=== PATIENT | female | born 1985 | race Caucasian/White ===

== ENCOUNTER 2017-07-03 11:48 | Inpatient (IN) ==
[2017-07-03] MEDS ORDERED: ACETAMINOPHEN 500 MG TABLET PO PRN (16:02)
[2017-07-03] MEDS ORDERED: LIDOCAINE 1% (10mg/ml) 2mL INJ PF SDV ID PRN (16:02)
[2017-07-03] MEDS ORDERED: METHYLERGONOVINE 0.2 MG/ML INJECTION IM PRN (16:02)
[2017-07-03] MEDS ORDERED: CALCIUM CARBONATE Chewable 500mg TABLET PO PRN (16:02)
[2017-07-03] MEDS ORDERED: MAG-AL + SIM ORAL LIQUID 30ml PO PRN (16:02)
[2017-07-03] MEDS ORDERED: CARBOPROST 250 MCG/ML INJECTION IM PRN (16:02)
[2017-07-03] MEDS: LR 1,000 ML IV PRN (16:45)
[2017-07-03 17:31] VITALS: BMI 37.5
[2017-07-03] MEDS ORDERED: ZOLPIDEM 5 MG TABLET PO PRN (22:00)
[2017-07-04] MEDS ORDERED: OXYTOCIN DRIP 30 UNIT/500 ML ML IV PRN (05:00)
[2017-07-04] MEDS: D5LR 1,000 ML IV PRN ×2 (05:18→14:49)
--- NOTE | 2017-07-04 08:03 | Anesthesia Preoperative Report ---
Anesthesia Epidural/Spinal Rec - Date and Time Date: 07/04/17 Procedure: Labor Epidural Plan: Epidural - Vital Signs NPO since: 399 /Para: P:1 Heart Rate: 159 - Medictaions & Allergies Inpatient Medications: Current Medications Acetaminophen (Tylenol) 500 - 1,000 mg PO Q4H PRN PRN Reason: Pain Hydrocodone Bitart/Acetaminophen ([place] 5/325) 1 - 2 tab PO Q4H PRN PRN Reason: Pain Al Hydroxide/Mg Hydroxide (Maalox Plus) 30 ml PO Q3H PRN PRN Reason: Indigestion Calcium Carbonate (Tums) 500 - 1,000 mg PO Q2H PRN PRN Reason: Indigestion Carboprost Tromethamine (Hemabate) 250 mcg IM O PRN PRN Reason: .Downtime Lactated Ringer's (Lactated Ringers) 1,000 mls @ 0 mls/hr IV .Q0M PRN PRN Reason: As Directed Last Admin: 07/03/17 16:45 Dose: 999 mls/hr Dextrose/Lactated Ringer's (Dextrose 5%-Lactated Ringers) 1,000 mls @ 125 mls/ hr IV .Q8H PRN PRN Reason: Labor Last Admin: 07/04/17 05:18 Dose: 125 mls/hr Oxytocin (Pitocin Drip) 30 unit in 500 mls @ 2 mls/hr IV .Q24H PRN; Protocol PRN Reason: Induction/Augmentation Last Admin: 07/04/17 05:18 Dose: 2 mls/hr Lidocaine HCl (Xylocaine-Mpf 1% Vial) 0.2 mg ID O PRN PRN Reason: IV Start Methylergonovine Maleate (Methergine) 0.2 mg IM O PRN Misoprostol (Cytotec) 800 mcg DE ONCE PRN Zolpidem Tartrate (Ambien) 5 mg PO O PRN PRN Reason: Insomnia Allergies/Adverse Reactions: Allergies Allergy/AdvReac Type Severity Reaction Status Date / Time amoxicillin Allergy Mild Vomiting Verified 07/03/17 16:40 - Home Medications Home Medications: Home Medications Medication Instructions Recorded Confirmed Type Vit No.130/Iron/Folic 1 tab PO DAILY #0 tab 12/24/14 07/03/17 History [ Tablet] CALCIUM CARBONATE Chewable [Tums] 500 mg PO Q4H PRN 05/19/17 07/03/17 History Ferrous Sulfate [Iron] 325 mg PO DAILY 05/19/17 07/03/17 History - Medical History Gastrointestional: Reports: Gastroesophageal Reflux Disease, Morbid Obesity Other History: Reports: Now DENIES: Anesthesia Reactions - Surgical History Reproductive Surgery/Treatment: DENIES: Section Anesthesia Reactions: None Hx Family Anesthesia Reaction: No History of Motion Sickness: No - Social History Smoking Status: Former smoker Second Hand Exposure: Yes Substance Use Type: does not use Alcohol Intake Frequency: does not drink Hx Chewing Tobacco Use: No - Pertinent Findings Lab Data: CBC and BMP 07/03/17 16:17 - Physical Exam Respiratory Exam: lungs clear, bilateral breath sounds equal Cardiovascular Exam: regular rate and rhythm - Airway Assessment Mallampati Score: II TMD: 3 Fingerbreadths Neck Extension: fair Overall Assessment: no airway concerns - ASA ASA Score: 2 - Discussion Discussion: Discussed risks/options/alternatives of anesthesia and questions answered. Patient consents. Nursing pain assessment noted. Anesthesia Discussion: family member Attestation Statement: Prior to the delivery of any anesthetic medication, I examined the patient, developed the plan, obtained the patient's consent and discussed the risk and benefits of the procedure with the patient/guardian.
[2017-07-04] MEDS: LR 1,000 ML IV PRN (10:54)
[2017-07-04] MEDS ORDERED: DiphenhydrAMINE 50 MG/ML INJECTION IVP PRN (11:07)
[2017-07-04] MEDS ORDERED: ONDANSETRON 4 MG/2 ML INJECTION IVP PRN ×2 (11:07→18:45)
[2017-07-04] MEDS ORDERED: ROPIVACAINE 1% 10MG/ML INJ 200 MG, SUFentanil 50 MCG in NS 100 ML EPI PRN (11:07)
[2017-07-04] MEDS ORDERED: NALOXONE 0.4 MG/ML INJECTION IVP PRN (11:07)
[2017-07-04] MEDS ORDERED: CEFAZOLIN 1 G INJECTION IVP ONE (18:31)
[2017-07-04] MEDS ORDERED: FAMOTIDINE PB 20 MG/50 ML BAG IV ONE (18:31)
[2017-07-04] MEDS ORDERED: CEFAZOLIN PREMIX (MC ONLY) 2 GM/50 ML BAG IV ONE (18:31)
[2017-07-04] MEDS ORDERED: CITRIC ACID/SODIUM CITRATE 30ml PO ONE (18:31)
[2017-07-04] MEDS ORDERED: BUPIVACAINE 0.5% (5mg/ml) PF 30ml INJ SDV ONE (18:40)
[2017-07-04] MEDS ORDERED: LIDOCAINE 2%/EPI 1:200,000 20ml SDV PF ONE (18:40)
[2017-07-04] MEDS ORDERED: NALBUPHINE 10 MG/ML INJECTION IVP PRN (18:45)
[2017-07-04] MEDS ORDERED: NALOXONE 2 MG/2 ML INJECTION PFS IVP PRN (18:45)
[2017-07-04] MEDS ORDERED: MORPHINE SULFATE PF 5mg/10ml INJ (Duramorph) ONE (18:59)
[2017-07-04] MEDS ORDERED: ONDANSETRON 4 MG/2 ML INJECTION ONE (19:00)
[2017-07-04] MEDS: OXYTOCIN BOLUS BAG 30 UNIT/500 ML ML IV SCH ×2 (19:17→19:45)
[2017-07-04] MEDS ORDERED: HYDROCORTISONE 2.5% CREAM 30gm RECTALLY PRN (19:59)
[2017-07-04] MEDS ORDERED: DiphenhydrAMINE 25 MG CAPSULE PO PRN (19:59)
[2017-07-04] MEDS ORDERED: SIMETHICONE 80 MG CHEWABLE TABLET PO PRN (19:59)
[2017-07-04] MEDS ORDERED: OXYTOCIN DRIP 30 UNIT/500 ML ML IV SCH (20:00)
[2017-07-04] MEDS: CLINDAMYCIN PB 900 MG/50 ML BAG IV SCH (21:34)
[2017-07-04] MEDS: GENTAMICIN PB 120 MG/100 ML BAG IV SCH (23:50)
[2017-07-05] MEDS: SIMETHICONE 80 MG CHEWABLE TABLET PO SCH ×5 (00:44→22:35)
[2017-07-05] MEDS: CEFAZOLIN 1 G in NS 100 ML IV SCH ×5 (00:45→19:44)
[2017-07-05] MEDS: IBUPROFEN 800 MG TABLET PO PRN ×2 (02:02→16:39)
[2017-07-05] MEDS: D5LR 1,000 ML IV SCH ×3 (02:31→17:33)
[2017-07-05] MEDS ORDERED: CALCIUM CARBONATE Chewable 500mg TABLET PO PRN (04:10)
[2017-07-05] MEDS: CLINDAMYCIN PB 900 MG/50 ML BAG IV SCH ×3 (06:30→22:35)
--- NOTE | 2017-07-05 08:31 | OB/GYN Progress Note ---
OB-PP Progress Note - General PPD1 Maternal Group B Strep: Negative Maternal blood type: A+ Maternal Rubella Status: Immune - Subjective Date: 07/05/17 Lochia: Minimal Pain: controlled Voiding: gamino still in place Nausea or Vomiting Present: No Subjective Comments: She was started on Abx last PM after surgery for an elevated temperature. - Objective Vital Signs: Last Vital Signs Temp 98.3 F 07/05/17 05:30 Pulse 91 07/05/17 05:30 Resp 16 07/05/17 05:30 BP 109/60 07/05/17 05:30 Pulse Ox 98 07/05/17 05:30 Urine Output: good General: alert and oriented Abdomen: fundus firm, non-tender, soft, non-distended Incision: clean, dry, intact Extremities: non-tender Laboratory: Laboratory Results - last 24 hr 07/03/17 07/05/17 16:17 01:04 WBC 16.9 H D RBC 3.17 L Hgb 9.8 L Hct 30.2 L MCV 95.3 MCH 30.9 MCHC 32.5 RDW Std Deviation 46.1 Plt Count 166 MPV 11.9 Blood Type A Positive Antibody Screen Negative - Assessment Assessment: Primary C/S, Chorioamnionitis - Plan Plan: routine care, antibiotics (Until 24 hour afebrile. )
[2017-07-05] MEDS: GENTAMICIN PB 120 MG/100 ML BAG IV SCH ×2 (08:37→16:40)
[2017-07-05] MEDS: DOCUSATE CALCIUM 240 MG CAPSULE PO SCH (08:44)
[2017-07-05] MEDS: FERROUS SULFATE 324 MG TABLET PO SCH (08:45)
[2017-07-05] MEDS: PRENATAL VITAMIN TABLET PO SCH (08:45)
--- NOTE | 2017-07-05 15:36 | Operative Note ---
DATE OF SURGERY 07/04/2017 PREOPERATIVE DIAGNOSES 1. 31-year-old 2, para 0-1-0-1 at 39 weeks 3 days gestational age. 2. Arrest of descent. 3. tachycardia. 4. Spotting throughout . POSTOPERATIVE DIAGNOSES 1. 31-year-old 2, para 0-1-0-1 at 39 weeks 3 days gestational age. 2. Arrest of descent. 3. tachycardia. 4. Spotting throughout . PROCEDURE Primary low transverse section. SURGEON Dr. Kaykay Chaney GRAPHIC ILLUSTRATOR Dr. Stewart Melo ANESTHESIA Epidural by Leandro Johnson CRNA . COMPLICATIONS None. EBL 1000 mL. FINDINGS Viable male , cephalic OT position, clear fluids. Nuchal cord x 2, Apgars 8/9, weight 3768 g, name "Ani." Normal-appearing uterus, tubes and right ovary. The left ovary had some tissue connected to it that appeared to be possibly fimbria versus endometriosis type tissue. INDICATIONS The patient was brought in on the evening of 07/03/2017 for Helton bulb cervical ripening due to her spotting throughout . The morning of 07/04/2017 she was started on Pitocin. Her membranes were ruptured artificially, returning clear fluids. She received an epidural. An IUPC was placed at one point to document adequate contractions. When she first started pushing baby was OP and she rotated the baby to OT. heart tones became tachycardic but still with moderate variability. Maternal temperature was normal. However , I was beginning to become suspicious of infection. After she had pushed for an hour with minimal to no descent, she was consented for an operative vaginal delivery. Since the baby was in the OT position I could not place forceps. Instead, Mityvac hard cup was placed on the head and maternal tissue was extruded. Baby was at the +2 out of 5 station. Her bladder was drained prior to placing the vacuum. Over the course of three contractions I got little to no descent of the head with one popoff. I offered to try the vacuum one more time versus section and she opted for the latter. Her Pitocin was turned off. PROCEDURE The patient was taken to the operating room where her epidural was brought up to adequate surgical levels. She already had a Helton catheter in place. She was placed in the lithotomy position with a bump under her right hip. She was prepared and draped in the normal sterile fashion. A Pfannenstiel skin incision was made and carried down to the fascia. The fascia was incised in the midline and extended laterally with the Cowart scissors. The fascia was elevated and the underlying rectus muscles were dissected off. The peritoneum was entered bluntly and this was extended superiorly and inferiorly with good visualization of the bladder. The bladder blade was inserted. The bladder was low enough on the uterus that a bladder flap was not created. The lower uterine segment was incised in a transverse fashion layer by layer with the scalpel and bluntly extended. The 's head was delivered. The nuchal cord x 2 was reduced. The remainder of the baby was delivered. The cord was clamped and cut. The was handed to Dr. Andino who was asked to attend due to tachycardia and failed vacuum. The placenta delivered spontaneously. The uterus was exteriorized and cleared of all clots and debris. The uterus was bleeding vigorously due to a venous sinus on the front. The uterine incision was closed with running locked 0-Monocryl. A free tie was placed on the left edge of the incision for good hemostasis. There appeared to be a small hematoma versus ecchymosis on the left lower edge of the incision. This was watched for several minutes. It was not expanding so we did not put any further stitches in the uterus. The tubes and ovaries were inspected. She had some densely adherent tissue to the left ovary but I did not remove it because I did not want to cause further bleeding. The uterus was returned to the abdomen. The gutters were cleared of all clots and debris. The uterine incision was inspected one final time and still noted to be hemostatic. The peritoneum was closed with running 2-0 Vicryl. Hemostasis was obtained in the rectus muscles with cautery. The fascia was closed with running 0 Vicryl. Hemostasis was obtained in the subcutaneous tissue with cautery. Bipin's fascia was closed with two simple sutures of 2-0 Vicryl. The skin was closed with 4-0 Vicryl in a subcuticular manner. On the very last throw on the right edge I encountered a vessel in the skin. I attempted to contain this with cautery and pressure but was not successful, so a mattress suture of the 4-0 Vicryl was placed externally for hemostasis. Steri-Strips were placed. Sponge, sharp and instrument counts were correct. The patient tolerated the procedure well. She was taken out of the lithotomy position and to the recovery room in good condition. PAPO
[2017-07-05] MEDS: HYDROCODONE/APAP 5mg/325mg TABLET PO PRN ×2 (16:40→22:35)
[2017-07-06] MEDS: HYDROCODONE/APAP 5mg/325mg TABLET PO PRN ×3 (06:17→17:58)
[2017-07-06] MEDS: IBUPROFEN 800 MG TABLET PO PRN ×3 (06:17→21:38)
--- NOTE | 2017-07-06 08:15 | OB/GYN Progress Note ---
OB-PP Progress Note - General PPD2 Maternal Group B Strep: Negative Maternal blood type: A+ Maternal Rubella Status: Immune - Subjective Date: 07/06/17 Lochia: Minimal Pain: controlled Voiding: voiding - Objective Vital Signs: Last Vital Signs Temp 97.5 F 07/06/17 06:10 Pulse 95 07/06/17 06:10 Resp 20 07/06/17 06:10 BP 127/80 07/06/17 06:10 Pulse Ox 100 07/06/17 06:10 General: alert and oriented Abdomen: fundus firm, non-tender Incision: normal, clean, dry, intact Extremities: non-tender - Assessment Assessment: Primary C/S, Chorioamnionitis (Resolved) - Plan Plan: routine care Expected date of discharge: 07/07/17
[2017-07-06] MEDS: DOCUSATE CALCIUM 240 MG CAPSULE PO SCH (08:22)
[2017-07-06] MEDS: FERROUS SULFATE 324 MG TABLET PO SCH (08:22)
[2017-07-06] MEDS: PRENATAL VITAMIN TABLET PO SCH (08:22)
[2017-07-06] MEDS: SIMETHICONE 80 MG CHEWABLE TABLET PO SCH ×4 (08:32→21:38)
[2017-07-06] MEDS: D5LR 1,000 ML IV SCH (17:25)
[2017-07-07] MEDS: IBUPROFEN 800 MG TABLET PO PRN (05:50)
[2017-07-07 06:08] VITALS: BP 114/65; PULSE 91; RESP 16; TEMP 98.2; O2SAT 97
--- NOTE | 2017-07-07 07:54 | OB/GYN Progress Note ---
OB-PP Progress Note - General PPD3 Maternal Group B Strep: Negative Maternal blood type: A+ Maternal Rubella Status: Immune - Subjective Date: 07/07/17 Lochia: Minimal Pain: controlled Voiding: voiding - Objective Vital Signs: Last Vital Signs Temp 98.2 F 07/07/17 05:47 Pulse 91 07/07/17 05:47 Resp 16 07/07/17 05:47 BP 114/65 07/07/17 05:47 Pulse Ox 97 07/07/17 05:47 General: alert and oriented Abdomen: fundus firm, non-tender Incision: normal, dry, intact Extremities: non-tender - Assessment Assessment: Primary C/S - Plan Plan: routine care, discharge home, continue PNV
[2017-07-07] MEDS: HYDROCODONE/APAP 5mg/325mg TABLET PO PRN (09:38)
[2017-07-07] MEDS: DOCUSATE CALCIUM 240 MG CAPSULE PO SCH (09:38)
[2017-07-07] MEDS: FERROUS SULFATE 324 MG TABLET PO SCH (09:38)
[2017-07-07] MEDS: SIMETHICONE 80 MG CHEWABLE TABLET PO SCH (09:38)
== END 2017-07-07 10:10 | disposition home or self-care (01) | DRG 765 ==
LOC: MC 15:53
PROVIDERS: ADMIT Obstetrics & Gynecology; ATTEND Obstetrics & Gynecology